=== PATIENT | male | born 2000 | race Caucasian/White ===

== ENCOUNTER 2024-09-30 21:59 | Emergency (ER) | payer MEDICAID ==
[~2024-09-30] VITALS: Ht 172.7 cm; Wt 84.3 kg
[2024-09-30 22:03] VITALS: O2SAT 97
[2024-09-30 22:27] VITALS: BP 104/80; PULSE 110; RESP 16; TEMP 36.8; O2SAT 98
== END 2024-09-30 22:46 | disposition left against medical advice (07) ==
LOC: ER 21:59
DX: F10.129 Alcohol abuse with intoxication, unspecified (principal); Z53.21 Procedure and treatment not carried out due to patient leaving prior to being seen by health care provider; Y90.9 Presence of alcohol in blood, level not specified